=== PATIENT | female | born 1950 | race Caucasian/White ===

== ENCOUNTER 2017-09-26 07:57 | Emergency (ER) | payer MEDICAID ==
[~2017-09-26] VITALS: Ht 162.6 cm; Wt 50.0 kg
[2017-09-26 08:00] VITALS: BP 117/76
[2017-09-26] MEDS ORDERED: BACITRACIN ZINC OINT UDPKT TOP ONE (09:30)
[2017-09-26] MEDS ORDERED: TETANUS, DIPHTHERIA, PERTUSSIS VAC/PF 0.5ML (>7YR OLD) IM ONE (09:30)
[2017-09-26] MEDS ORDERED: ACETAMINOPHEN 325MG TABLET PO STA (10:40)
== END 2017-09-26 11:10 | disposition home or self-care (01) ==
LOC: ER 08:13
DX: S71.131A Puncture wound without foreign body, right thigh, initial encounter (principal); S81.831A Puncture wound without foreign body, right lower leg, initial encounter; F20.9 Schizophrenia, unspecified; M19.90 Unspecified osteoarthritis, unspecified site; F12.10 Cannabis abuse, uncomplicated; Z88.5 Allergy status to narcotic agent; Z88.8 Allergy status to other drugs, medicaments and biological substances; W54.0XXA Bitten by dog, initial encounter; Y93.89 Activity, other specified; Y92.89 Other specified places as the place of occurrence of the external cause; Y99.8 Other external cause status
CPT/HCPCS: 73590; 90471; 90715; 99284

== ENCOUNTER 2017-10-20 12:01 | Emergency (ER) | payer MEDICAID, OTHER ==
[~2017-10-20] VITALS: Ht 157.5 cm; Wt 56.0 kg
[2017-10-20 14:44] VITALS: BP 109/61
== END 2017-10-20 14:46 | disposition home or self-care (01) ==
LOC: ER 13:16
DX: S81.851D Open bite, right lower leg, subsequent encounter (principal); F12.10 Cannabis abuse, uncomplicated; Z88.5 Allergy status to narcotic agent; Z88.6 Allergy status to analgesic agent; W54.0XXD Bitten by dog, subsequent encounter
CPT/HCPCS: 99281

== ENCOUNTER 2021-06-08 01:39 | Emergency (ER) | payer MEDICAID ==
[~2021-06-08] VITALS: Ht 157.5 cm; Wt 50.0 kg
[2021-06-08] MEDS ORDERED: ACETAMINOPHEN WITH CODEINE 300/30MG TABLET PO ONE (05:15)
[2021-06-08 05:17] VITALS: BP 130/83
[2021-06-08] MEDS ORDERED: ACETAMINOPHEN 325MG TABLET PO ONE (06:00)
== END 2021-06-08 07:15 | disposition home or self-care (01) ==
LOC: ER 01:39
DX: S16.1XXA Strain of muscle, fascia and tendon at neck level, initial encounter (principal); S20.212A Contusion of left front wall of thorax, initial encounter; F12.10 Cannabis abuse, uncomplicated; Y08.89XA Assault by other specified means, initial encounter; Y93.89 Activity, other specified; Y92.89 Other specified places as the place of occurrence of the external cause; Y99.8 Other external cause status; Z88.6 Allergy status to analgesic agent; Z88.5 Allergy status to narcotic agent
CPT/HCPCS: 71101; 72040; 99284

== ENCOUNTER 2022-01-06 09:58 | Emergency (ER) | payer MEDICAID ==
[~2022-01-06] VITALS: Ht 165.1 cm; Wt 70.0 kg
[2022-01-06] MEDS ORDERED: ACETAMINOPHEN 325MG TABLET PO ONE (10:45)
[2022-01-06] MEDS ORDERED: ACET-2708 MT (13:20)
[2022-01-06] MEDS ORDERED: HYDROCODONE/ACETAMINOPHEN 5/325MG TABLET PO ONE (13:30)
[2022-01-06 13:57] VITALS: BP 138/91
== END 2022-01-06 14:31 | disposition home or self-care (01) ==
LOC: ER 09:58
DX: M79.672 Pain in left foot (principal); M79.671 Pain in right foot; F12.10 Cannabis abuse, uncomplicated; Z86.59 Personal history of other mental and behavioral disorders; Z98.890 Other specified postprocedural states; Z88.5 Allergy status to narcotic agent; Z88.6 Allergy status to analgesic agent; W18.30XA Fall on same level, unspecified, initial encounter; Y93.89 Activity, other specified; Y92.89 Other specified places as the place of occurrence of the external cause; Y99.8 Other external cause status
CPT/HCPCS: 71045; 72100; 72170; 73620; 99284

== ENCOUNTER 2022-12-19 16:42 | Emergency (ER) | payer MEDICAID ==
[~2022-12-19] VITALS: Ht 160 cm; Wt 48.0 kg
[~2022-12-19 16:42] MED LIST: ACET-2708 MT
[2022-12-19 17:35] VITALS: BP 125/81
[2022-12-19] MEDS ORDERED: DIPH28.34 TP (18:10)
== END 2022-12-19 19:14 | disposition home or self-care (01) ==
LOC: ER 16:42
DX: S40.862A Insect bite (nonvenomous) of left upper arm, initial encounter (principal); S40.861A Insect bite (nonvenomous) of right upper arm, initial encounter; S80.862A Insect bite (nonvenomous), left lower leg, initial encounter; S80.861A Insect bite (nonvenomous), right lower leg, initial encounter; S20.462A Insect bite (nonvenomous) of left back wall of thorax, initial encounter; S20.461A Insect bite (nonvenomous) of right back wall of thorax, initial encounter; W57.XXXA Bitten or stung by nonvenomous insect and other nonvenomous arthropods, initial encounter; Y93.89 Activity, other specified; Y92.013 Bedroom of single-family (private) house as the place of occurrence of the external cause
CPT/HCPCS: 99281; 99282

== ENCOUNTER 2024-08-02 14:46 | Emergency (ER) | payer MEDICAID ==
[~2024-08-02] VITALS: Ht 157.5 cm; Wt 49.9 kg
[~2024-08-02 14:46] MED LIST changes: +DIPH28.34 TP
[2024-08-02 14:57] VITALS: O2SAT 98
[2024-08-02 16:55] LABS: BASOPHILS % 0.5 % (0.0-2.0); EOSINOPHILS % 0.2 % (0.0-5.0); HEMATOCRIT. 40.9 % (36.0-48.0); HEMOGLOBIN. 13.9 g/dL (12.0-16.0); LYMPHOCYTES % 12.2 % (20.0-50.0); MEAN CORPUSCULAR HEMOGLOBIN 30.4 pg (28.0-32.0); MEAN CORPUSCULAR VOLUME 89.3 fL (81.0-99.0); MEAN PLATELET VOLUME 8.8 fl (7.4-10.4); MONOCYTES % 7.5 % (2.0-8.0); NEUTROPHILS % 79.6 % (40.0-76.0); PLATELET 319 x1000/uL (130-400); RED BLOOD CELL COUNT 4.58 mill/uL (4.2-5.4); RED CELL DISTRIBUTION WIDTH 13.5 % (11.6-14.6); WHITE BLOOD COUNT 15.5 x1000/uL (4.5-11.0)
[2024-08-02 17:00] LABS: CHLORIDE 105 mEq/L (98-107); POTASSIUM 4.2 mEq/L (3.5-5.1); SODIUM 138 mEq/L (136-145)
[2024-08-02 17:01] LABS: CARBON DIOXIDE 27 mEq/L (21-32)
[2024-08-02 17:02] LABS: CALCIUM 10.1 mg/dL (8.7-10.4)
[2024-08-02 17:07] LABS: CREATININE 0.8 mg/dL (0.6-1.0); GLUCOSE 118 mg/dL (70-105); UREA NITROGEN BLOOD 18 mg/dL (9-23)
[2024-08-02] MEDS ORDERED: BENZ1LOZ73 MT (17:57)
[2024-08-02] MEDS ORDERED: GUAI-450 MT (17:57)
[2024-08-02 18:11] VITALS: BP 114/78; PULSE 97; RESP 16; TEMP 37.16964; O2SAT 98
== END 2024-08-02 18:12 | disposition home or self-care (01) ==
LOC: ER 14:46
DX: J06.9 Acute upper respiratory infection, unspecified (principal); Z88.6 Allergy status to analgesic agent; Z88.5 Allergy status to narcotic agent; Z86.59 Personal history of other mental and behavioral disorders
CPT/HCPCS: 36415; 71045; 80048; 85025; 99284